=== PATIENT | female | born 1935 | race Caucasian/White ===

== ENCOUNTER 2023-04-11 15:16 | Emergency (ER) | payer MEDICARE, SELFPAY ==
[2023-04-11] VITALS (21 sets, daily range): BP systolic 114–144; BP diastolic 68–105; PULSE 55–90; RESP 18; TEMP 36.1; O2SAT 93–97; BMI 31.3
--- NOTE | 2023-04-11 16:06 | CRLHL7_ITS ---
For Patients: As a result of the Cures Act, medical imaging exams and procedure reports are released immediately into your electronic medical record. You may view this report before your referring provider. If you have questions, please contact your health care provider. INDICATION: Fall TECHNIQUE: AP pelvis and right hip views FINDINGS: Normal alignment. No acute fractures or acute osseous abnormalities. Degenerative change of both hips. No hip fractures seen. Vascular calcifications. IMPRESSION: No acute fracture. Dictated by Viji Yeepz MD @ 04/11/2023 4:59:14 PM (Electronically Signed)
--- NOTE | 2023-04-11 16:06 | CRLHL7_ITS ---
For Patients: As a result of the Century Cures Act, medical imaging exams and procedure reports are released immediately into your electronic medical record. You may view this report before your referring provider. If you have questions, please contact your health care provider. INDICATION: Fall TECHNIQUE: Three views left wrist FINDINGS: Comminuted impacted intra-articular distal radius fracture. No significant angulation. Ulnar styloid fracture. Chondrocalcinosis. Soft tissue swelling. Vascular calcifications. Dictated by Viji Yepez MD @ 04/11/2023 4:56:00 PM (Electronically Signed)
--- NOTE | 2023-04-11 17:06 | ED_ITS ---
HPI - Fall General Date Seen: 04/11/23 Chief Complaint: Fall/Minor Trauma Stated Complaint: pain Time Seen by Provider: 04/11/23 15:18 Source: patient Mode of arrival: ambulatory Limitations: no limitations History of Present Illness HPI Narrative: Patient is a 87-year-old female presenting to emergency department for left wrist and right hip pain after a fall. She has a history of issues with orthostatic hypotension and prior to arrival she stood up taking got lightheaded falling forward. She has fallen like this several times in the past but usually falls backwards back into her chair. She states she never lost consciousness and caught herself with her left arm. She is not currently having left wrist pain and right hip pain denies any injuries. She states she knows she did not hit her head. Is not currently on any blood thinners. She does state her doctors have been trying to adjust her medications for high blood pressure so that she does not develop this orthostatic hypotension. She feels back to normal at this time. No other concerns. Denies fevers, chills, chest pain, shortness of breath, weakness, numbness, headache vision changes. Related Data Home Medications Medication Instructions Recorded Confirmed amlodipine 5 mg tablet 5 mg PO DAILY 04/11/23 04/11/23 atenolol 50 mg tablet 50 mg PO DAILY 04/11/23 04/11/23 lisinopril 20 mg tablet 20 mg PO DAILY 04/11/23 04/11/23 simvastatin 20 mg tablet 20 mg PO QPM 04/11/23 04/11/23 Allergies Allergy/AdvReac Type Severity Reaction Status Date / Time No Known Drug Allergies Allergy Verified 04/11/23 15:21 Review of Systems Status of ROS: Reports: 10 or more systems reviewed and unremarkable except as noted in History and below Exam Narrative: Exam Narrative: Const: Well-nourished, Well-developed, in mild distress Eyes: PERRL, no conjunctival injection, and symmetrical lids HENT: Atraumatic external nose and ears. Moist mucous membranes. Neck: Symmetric, trachea midline, No thyromegaly. CVS: RRR, No murmurs or gallops. Peripheral pulses 2+ and equal in all extremities RESP: Unlabored respiratory effort. Clear to auscultation bilaterally. GI: Nontender/Nondistended, No rebound or guarding. MSK: Apparent deformity to left wrist, tenderness noted left wrist and posterior right hip Skin: Warm, Dry. No rashes or lesions. Neuro: Normal Muscle tone, No focal neurological deficits. Psych: Awake, Alert, & Oriented x3. Appropriate mood and affect. Const: Vital Signs, click to edit/add: Vital Signs - 24 hr 04/11/23 15:18 04/11/23 15:28 04/11/23 15:29 Temperature 97 F L Pulse Rate 59 L 60 Pulse Rate [Pulse Oximeter] 58 L Pulse Rate [orthos tatic lying] Pulse Rate [orthos tatic sitting] Pulse Rate [orthos tatic standing] Respiratory Rate 18 Blood Pressure 142/68 H Blood Pressure [Ri ght Upper Arm] 126/70 Blood Pressure [or thostatic lying] Blood Pressure [or thostatic sitting] Blood Pressure [or thostatic standing ] Pulse Oximetry 97 95 [facility] 04/11/23 15:30 04/11/23 15:31 04/11/23 17:01 Temperature Pulse Rate 59 L 62 55 L Pulse Rate [Pulse Oximeter] Pulse Rate [orthos tatic lying] Pulse Rate [orthos tatic sitting] Pulse Rate [orthos tatic standing] Respiratory Rate Blood Pressure 141/68 H Blood Pressure [Ri ght Upper Arm] Blood Pressure [or thostatic lying] Blood Pressure [or thostatic sitting] Blood Pressure [or thostatic standing ] Pulse Oximetry 95 95 93 [facility] 04/11/23 17:03 04/11/23 17:15 04/11/23 17:30 Temperature Pulse Rate 59 L 56 L 57 L Pulse Rate [Pulse Oximeter] Pulse Rate [orthos tatic lying] Pulse Rate [orthos tatic sitting] Pulse Rate [orthos tatic standing] Respiratory Rate Blood Pressure 144/74 H Blood Pressure [Ri ght Upper Arm] Blood Pressure [or thostatic lying] Blood Pressure [or thostatic sitting] Blood Pressure [or thostatic standing ] Pulse Oximetry 94 97 97 Oxygen Delivery Me od 04/11/23 17:35 04/11/23 17:45 04/11/23 18:00 Temperature Pulse Rate 56 L 57 L 57 L Pulse Rate [Pulse Oximeter] Pulse Rate [orthos tatic lying] Pulse Rate [orthos tatic sitting] Pulse Rate [orthos tatic standing] Respiratory Rate Blood Pressure Blood Pressure [Ri ght Upper Arm] Blood Pressure [or thostatic lying] Blood Pressure [or thostatic sitting] Blood Pressure [or thostatic standing ] Pulse Oximetry 97 97 96 Oxygen Delivery Me thod 04/11/23 18:04 04/11/23 18:12 04/11/23 18:15 Temperature Pulse Rate 56 L 66 69 Pulse Rate [Pulse Oximeter] Pulse Rate [orthos tatic lying] Pulse Rate [orthos tatic sitting] Pulse Rate [orthos tatic standing] Respiratory Rate Blood Pressure 128/72 Blood Pressure [Ri ght Upper Arm] Blood Pressure [or thostatic lying] Blood Pressure [or thostatic sitting] Blood Pressure [or thostatic standing ] Pulse Oximetry 97 95 96 Oxygen Delivery Me thod 04/11/23 18:16 04/11/23 18:18 04/11/23 18:30 Temperature Pulse Rate 84 90 61 Pulse Rate [Pulse Oximeter] Pulse Rate [orthos tatic lying] Pulse Rate [orthos tatic sitting] Pulse Rate [orthos tatic standing] Respiratory Rate Blood Pressure 124/105 H 114/89 Blood Pressure [Ri ght Upper Arm] Blood Pressure [or thostatic lying] Blood Pressure [or thostatic sitting] Blood Pressure [or thostatic standing ] Pulse Oximetry 96 95 95 Oxygen Delivery Me thod 04/11/23 18:31 04/11/23 18:32 04/11/23 18:37 Temperature Pulse Rate 61 60 Pulse Rate [Pulse Oximeter] Pulse Rate [orthos tatic lying] 60 Pulse Rate [orthos tatic sitting] 68 Pulse Rate [orthos tatic standing] 87 Respiratory Rate Blood Pressure 137/87 Blood Pressure [Ri ght Upper Arm] Blood Pressure [or thostatic lying] 128/72 Blood Pressure [or thostatic sitting] 124/105 H Blood Pressure [or thostatic standing ] 114/89 Pulse Oximetry 96 95 Oxygen Delivery Me thod Course Vital Signs Vital signs: Initial Vital Signs Temperature 97 F L 04/11/23 15:18 Temperature Source Temporal Artery Scan 04/11/23 15:18 Pulse Rate 58 L 04/11/23 15:18 Respiratory Rate 18 04/11/23 15:18 Blood Pressure 126/70 04/11/23 15:18 Blood Pressure Mean 88 04/11/23 15:18 Blood Pressure Position Supine 04/11/23 15:18 Pulse Oximetry 97 04/11/23 15:18 Oxygen Delivery Method Room Air 04/11/23 15:18 Vital Signs Temperature 97 F L 04/11/23 15:18 Pulse Rate 58 L 04/11/23 15:18 Respiratory Rate 18 04/11/23 15:18 Blood Pressure 126/70 04/11/23 15:18 Pulse Oximetry 97 04/11/23 15:18 Oxygen Delivery Method Room Air 04/11/23 15:18 Temperature 97 F L 04/11/23 15:18 Pulse Rate 60 04/11/23 18:37 Respiratory Rate 18 04/11/23 15:18 Blood Pressure 128/72 04/11/23 18:37 Pulse Oximetry 95 04/11/23 18:32 Oxygen Delivery Method Room Air 04/11/23 15:18 MDM - Fall MDM Narrative Medical decision making narrative: Patient is a 7 year female presenting to emergency department after a fall. This appears to be related to orthostatic hypotension which she has been dealing with. This is not a new issue. Will get x-rays of her right hip and left wrist. She does not want anything for pain at this time. Consider she did have this episode would do an EKG, troponin, CBC, BMP. X-ray of the right hip showed no acute abnormalities. X-ray of the left wrist shows wrist fracture with minimal angulation. She was placed in a splint. Lab work returns showing no concerning abnormalities. We did do orthostatic blood pressures on her. Which she did stand her heart rate increased it was technically positive but blood pressures were negative. She was slightly dizzy when she stood up but did not feel like she was going to pass out. Family was initially concerned because she does not have anyone to stay with her tonight. They asked about possible admission. Explained to them that this is not [place] meet admission criteria considering it is a chronic issue she has been dealing with. The daughter then said she could stay with her tonight. I informed the patient to not take the oxycodone tonight due to the increased fall risk and she states she understands. Lab Data Labs: Lab Results 04/11/23 04/11/23 Range/Units 16:06 17:23 WBC 11.86 H (4.50-11.00) K/uL RBC 4.88 (4.00-5.20) m/uL Hgb 14.4 (12.0-16.0) gm/dL Hct 44.3 (33.0-51.0) % MCV 91 (80-100) fL MCH 30 (26-34) pg MCHC 33 (32-36) gm/dL RDW Coeff of Ruben 13.6 (11.5-15.5) % Plt Count 173 (140-440) K/uL Neut % (Auto) 78.4 H (42.0-72.0) % Lymph % (Auto) 12.7 L (20-44) % [place] % (Auto) 8.0 (0.0-11.0) % Eos % (Auto) 0.5 (0.0-7.0) % Baso % (Auto) 0.2 (0.0-3.0) % Neut # (Auto) 9.30 H (1.7-7.0) K/uL Lymph # (Auto) 1.50 (0.90-2.90) K/uL [place] # (Auto) 0.90 (0.00-0.90) K/UL Eos # (Auto) 0.10 (0.00-0.50) K/uL Baso # (Auto) 0.00 (0.00-0.30) K/uL Abs Immat Gran (auto) 0.00 (0.00-0.30) K/uL Imm/Tot Granulo (auto) 0.2 % Sodium 139 (135-149) mmol/L Potassium 4.2 (3.6-5.1) mmol/L Chloride 109 (96-114) mmol/L Carbon Dioxide 22 (20-32) mmol/L Anion Gap 8 (7-15) mEq/L BUN 23 (7-30) mg/dL Creatinine 1.0 (0.5-1.5) mg/dL Estimated Creat Clear 39.27 Estimated GFR 55 ml/min Glucose 117 H (60-115) mg/dL Calcium 8.9 (8.4-10.6) mg/dL POC Troponin I 0.01 (0.01-0.04) ng/ml Imaging Data X-ray left wrist: Radiologist's impression: Comminuted impacted intra-articular distal radius fracture. No significant angulation. Ulnar styloid fracture. Chondrocalcinosis. Soft tissue swelling. Vascular calcifications. Dictated by Viji Lucho,MD @ 04/11/2023 4:56:00 PM X-ray right hip: Radiologist's impression: No acute fracture. Dictated by Viji Yepez MD @ 04/11/2023 4:59:14 PM ECG Data Attestation: I personally reviewed and interpreted this ECG as follows: Prior ECG tracings: not available for review Interpretation: Sinus bradycardia rate 57 beats per minute, normal intervals, left axis, no ST or T-wave abnormalities Discharge Plan Discharge Clinical Impression: Chronic orthostatic hypotension Fracture of wrist Qualifiers: Encounter type: initial encounter Fracture type: closed Laterality: left Qualified Code(s): S62.102A - Fracture of unspecified carpal bone, left wrist, initial encounter for closed fracture Patient Disposition: Home, Self-Care Condition: Stable Instructions: Wrist Fracture in Adults (ED), Syncope (ED) Additional Instructions: The oxycodone but was prescribed can cause you to have increased fall risk. Use as last resort if Tylenol and ibuprofen is not helping. Be very careful walking when you take the medication. Prescriptions: No Action lisinopril 20 mg tablet 20 mg PO DAILY amlodipine 5 mg tablet 5 mg PO DAILY simvastatin 20 mg tablet 20 mg PO QPM atenolol 50 mg tablet 50 mg PO DAILY Follow Up/Referrals: Provider,Not a Local [Primary Care Provider] - Stand Alone Forms: [facility] Info Instructions
[2023-04-11 17:36] LABS: Basophils Percent Auto 0.2 % (0.0-3.0); Eosinophils Percent Auto 0.5 % (0.0-7.0); Hematocrit 44.3 % (33.0-51.0); Hemoglobin* 14.4 gm/dL (12.0-16.0); Immature Granulocytes Pct Auto 0.2 %; Lymphocytes Percent Auto 12.7 % (20-44); Mean Corpuscular HGB Conc 33 gm/dL (32-36); Mean Corpuscular Hemoglobin 30 pg (26-34); Mean Corpuscular Volume 91 fL (80-100); Neutrophils Percent Auto 78.4 % (42.0-72.0); Platelet Count* 173 K/uL (140-440); RDW Coefficient of Variation % 13.6 % (11.5-15.5); Red Blood Count 4.88 m/uL (4.00-5.20); White Blood Count* 11.86 K/uL (4.50-11.00)
[2023-04-11 17:41] LABS: Slide Review Reflex No
[2023-04-11 17:45] LABS: Troponin, Point-of-Care* 0.01 ng/ml (0.01-0.04)
[2023-04-11 17:51] LABS: Chloride* 109 mmol/L (96-114); Potassium* 4.2 mmol/L (3.6-5.1); Sodium* 139 mmol/L (135-149)
[2023-04-11 17:54] LABS: Anion Gap 8 mEq/L (7-15); Blood Urea Nitrogen* 23 mg/dL (7-30); Carbon Dioxide* 22 mmol/L (20-32); Est. Creatinine Clearance* 39.27; Estimated Glomerular Filt Rate 55 ml/min
[2023-04-11 17:55] LABS: Calcium* 8.9 mg/dL (8.4-10.6); Glucose* 117 mg/dL (60-115)
[2023-04-11] MEDS: IBUPROFEN 400 MG TABLET 800 MG PO (18:43)
== END 2023-04-11 18:53 | disposition home or self-care (01) ==
PROVIDERS: Emergency Provider Student in an Organized Health Care Education/Training Program
DX: S62.102A Fracture of unspecified carpal bone, left wrist, initial encounter for closed fracture (principal); I95.1 Orthostatic hypotension; W19.XXXA Unspecified fall, initial encounter
CPT/HCPCS: 29125; 36415; 73110; 73502; 80048; 84484; 85025; 93005; 99283; 99284; A9270

== ENCOUNTER 2024-09-05 10:42 | Outpatient (CLI) | payer MEDICARE, SELFPAY ==
--- NOTE | 2024-09-05 11:00 | CRLHL7_ITS ---
For Patients: As a result of the Century Cures Act, medical imaging exams and procedure reports are released immediately into your electronic medical record. You may view this report before your referring provider. If you have questions, please contact your health care provider. INDICATION: Follow-up nodule TECHNIQUE: CT chest without contrast. COMPARISON: Chest CT 04/18/2024 FINDINGS: Lungs and pleura: Persistent right apical linear opacity with decreased nodular component measuring up to 1.1 cm (08/15), previously 1.2 cm when measured in similar fashion. Unchanged left lower lobe ground-glass nodule measuring 3 mm (). New adjacent right lower lobe ground-glass nodule measuring 3 mm (). No pleural effusions, pleural thickening, or pneumothorax. Heart and vasculature: Heart size is normal. Thoracic aorta and pulmonary artery are normal in caliber. Moderate coronary artery calcifications Lymph nodes/mediastinum: No mediastinal, hilar, or axillary adenopathy. Chest wall: No masses. Upper abdomen: Similar postprocedural changes in the gallbladder fossa, presumably related to prior cholecystectomy. Similar vascular calcification in the right upper quadrant. Unchanged borderline intermediate partially exophytic right renal cystic lesion, incompletely imaged. Similar nodular left adrenal gland Bones: Multilevel degenerative change. Chronic appearing, although new compared to prior CT inferior endplate deformity of the T11 vertebral body. Healing fracture of the posterior left 4th through 9th ribs. Severe left glenohumeral joint degenerative change IMPRESSION: 1. Persistent right apical linear opacity with decreased nodular component may represent scarring. New punctate left lower lobe pulmonary nodule is likely infectious/inflammatory in the absence of malignancy history. Depending on patient risk factors, follow-up chest CT in 1 year can be considered to assess stability. 2. Resolved prior left pleural effusion. 3. Chronic appearing, although new compared to prior CT inferior endplate deformity of the T11 vertebral body. Please note that all CT scans at this facility use dose modulation, iterative reconstruction, and/or weight-based dosing when appropriate to reduce radiation dose to as low as reasonably achievable. Dictated by Ayanna Springer MD @ 09/08/2024 12:25:49 PM (Electronically Signed)
== END 2024-09-05 10:43 | disposition home or self-care (01) ==
PROVIDERS: Visit Provider Nurse Practitioner Gerontology
DX: R91.1 Solitary pulmonary nodule (principal); J90 Pleural effusion, not elsewhere classified; M43.8X4 Other specified deforming dorsopathies, thoracic region
CPT/HCPCS: 71250